=== PATIENT | female | born 1995 | race Caucasian/White ===

== ENCOUNTER 2024-05-17 11:50 | Inpatient (IN) ==
[2024-05-17] MEDS ORDERED: CALCIUM CARBONATE 500 MG CHEWABLE TAB PO PRN (12:23)
[2024-05-17] MEDS ORDERED: OXYTOCIN 30 UNITS/NSS 30 UNITS/500 ML BAG IV PRN (12:23)
[2024-05-17] MEDS ORDERED: LIDOCAINE 1% LOCAL 20 ML VIAL INFIL PRN (12:23)
[2024-05-17] MEDS: LACTATED RINGER'S 1,000 ML IV PRN (12:50)
[2024-05-17 13:13] LABS: Hemoglobin 14.1 g/dl (12.0-16.0); Mean Corpuscular Hemoglobin 31.5 pg (25.0-34.0); Mean Corpuscular Hgb Conc 34.4 g/dL (32.0-36.0); Mean Corpuscular Volume 91.7 fL (80.0-100.0); Platelet Count 153 K/uL (130-400); RDW Coefficient of Variation 13.8 % (11.5-14.5); RDW Standard Deviation 46.5 fL (36.4-46.3); Red Blood Count 4.47 M/uL (4.20-5.40); White Blood Count 11.97 K/ul (4.8-10.8)
--- NOTE | 2024-05-17 13:23 | Anesthesiology Consultation ---
Date of Service May 17, 2024 Assessment & Plan Chart Review Chart Review: Acceptable Risk for Surgery and Patient NOT seen in Pre Admission Testing Consults Requested none ASA ASA3 Proposed Anesthesia Anesthesia Type: Labor Epidural and CSE History Height/Weight Height: 5 ft 2 in Weight: 110.677 kg Allergies Allergy/AdvReac Type Severity Reaction Status Date / Time No Known Allergies Allergy Verified 05/15/24 16:21 Medications Home Medications Medication Instructions Recorded Confirmed Last Taken PNV [id number] 1 tab PO DAILY 10/04/23 05/15/24 03/27/24 [ Gummies] folic acid 1 tab PO DAILY 10/04/23 05/15/24 03/27/24 loratadine [Claritin] 10 mg PO DAILY 10/04/23 05/15/24 03/27/24 sertraline 50 mg tablet 50 mg PO DAILY 10/04/23 05/15/24 03/27/24 aspirin 81 mg chewable tablet 81 mg PO DAILY 01/10/24 05/15/24 03/27/24 Mag Glycinate 400 mg PO DAILY 03/27/24 05/15/24 03/27/24 Active Medications Generic Name Dose Route Start Last Admin Trade Name Freq PRN Reason Stop Dose Admin Lactated Ringer's 1,000 mls @ 125 mls/hr 05/17/24 12:23 05/17/24 12:50 Lr IV 05/19/24 12:22 999 mls/hr .Q8H PRN Administration L&D Protocol Protocol Past Medical History Medical History Seasonal allergies Depression with anxiety Varicella vaccination morbid obesity GERD HTN Exercise / Class Metabolic Activity II 4-5 Yardwork/Stairs/Walk up hill Past Family History Family History Father Brain tumor Denies family history of Ovarian cancer Breast cancer Colorectal cancer Past Surgical History Surgical History S/P adenoidectomy S/P wisdom tooth extraction Past Anesthesia History No Hx of Anesthesia Complications and No Family Hx of Anesthesia Complications History of PONV No Hx of PONV and No Hx of Motion Sickness Social History Smoking Status: Never smoker Do You Dip or Chew Tobacco: No Hx Alcohol Use: No Hx Substance Use: No substance use type: does not use Physical Exam Vital Signs Last Vital Signs Temp 36.6 C 05/17/24 12:09 Pulse 100 H 05/17/24 13:19 Resp 18 05/17/24 12:09 BP 134/90 05/17/24 12:12 Pulse Ox 94 05/17/24 13:19 Testing Laboratory Results 05/17/24 12:42
[2024-05-17] MEDS ORDERED: ePHEDrine sulfate 50 MG/ML AMP IV PRN ×2 (14:12→19:56)
[2024-05-17] MEDS ORDERED: fentANYL 2 MCG/ML BUPIVacaine 0.125%-NSS 100ML BAG EPI PRN (14:12)
[2024-05-17] MEDS ORDERED: BUPIVACAINE 0.25% PF 30 ML VIAL EPI PRN (14:12)
[2024-05-17] MEDS ORDERED: LIDOCAINE 2% MPF LOCAL 5 ML VIAL EPI PRN (14:12)
[2024-05-17] MEDS ORDERED: NALOXONE HCL 0.4 MG/1 ML VIAL/CARP IV PRN ×2 (14:12→19:56)
[2024-05-17] MEDS ORDERED: diphenhydrAMINE 50 MG/ML VIAL IV PRN (14:12)
[2024-05-17] MEDS ORDERED: ROPIVACAINE 0.5% PF 5 MG/ML 20 ML VIAL EPI PRN (14:12)
[2024-05-17] MEDS ORDERED: ONDANSETRON INJ 2 MG/ML 2 ML VIAL IV PRN ×2 (14:12→19:56)
[2024-05-17] MEDS ORDERED: SODIUM CHLORIDE 0.9% PF INJ 10 ML VIAL EPI PRN (14:12)
[2024-05-17] MEDS ORDERED: fentaNYL citrate PF 100 MCG/2 ML VIAL EPI PRN (14:12)
[2024-05-17] MEDS ORDERED: NALOXONE HCL 1 MG in SODIUM CHLORIDE 0.9% 1,000 ML IV PRN ×2 (14:12→19:56)
[2024-05-17] MEDS ORDERED: PROMETHAZINE HCL 6.25 MG in SODIUM CHLORIDE 0.9% 50 ML IV PRN ×2 (14:12→19:56)
[2024-05-17] MEDS: fentaNYL citrate PF 100 MCG/2 ML VIAL ONE (14:16)
[2024-05-17] MEDS: ePHEDrine sulfate 50 MG/ML AMP ONE (14:20)
[2024-05-17] MEDS: LIDOCAINE 2%/EPINEPHRINE 1:200,000 20 ML PF ONE (14:25)
[2024-05-17] MEDS: BUPIVACAINE 0.25% PF 30 ML VIAL ONE (14:26)
[2024-05-17] MEDS: fentANYL 2 MCG/ML BUPIVacaine 0.125%-NSS 100ML BAG ONE (14:26)
[2024-05-17] MEDS: SODIUM CHLORIDE 0.9% PF INJ 10 ML VIAL ONE (14:26)
[2024-05-17] MEDS ORDERED: SODIUM CHLORIDE 0.9% 250 ML IV PRN (14:41)
--- NOTE | 2024-05-17 15:54 | History & Physical Report ---
Date of Service May 17, 2024 Assessment & Plan (1) Supervision of normal first : Plan: Casandra is a 28-year-old G1, P0 currently at 39 weeks 1 day gestational age with confirmed suspected prolonged rupture of membranes. Appears to be in early labor with regular painful contractions noted. Reviewed risks associated with prolonged rupture most significantly risk of infection. 1. Fetus: Category 1 tracing 2. Labor: Appearing to have painful regular contractions. Will augment as indicated. 3. GBS negative 4. Vitals within normal limits (2) SROM (spontaneous rupture of membranes): (3) Prolonged spontaneous rupture of membranes: (4) Large for gestational age fetus affecting management of mother: History of Present Illness Primary Care Provider: Magui Villatoro DO Casandra is a 28-year-old G1, P0 currently at 39 weeks 1 day gestational age presents for evaluation of rupture of membranes and labor. Reports leakage of watery type fluid since around 12 PM yesterday. Reports worsening and more frequent contractions that started this morning but reports that contractions have been fairly regular since yesterday but more mild. complicated by suspected large for gestational age with estimated weight at 94th percentile, AC at greater than 98th percentile on last growth ultrasound. OB Labs: Blood Type A Positive 10/18/23 Antibody Screen NEGATIVE 10/18/23 Hemoglobin 12.5 g/dl (12.0-16.0) 03/14/24 Hematocrit 36.1 % (37.0-47.0) L 03/14/24 Mean Corpuscular Volume 87.8 fL (80.0-100.0) 10/18/23 Platelet Count 274 K/uL (130-400) 10/18/23 Rubella IgG Antibody Immune (Immune) 10/18/23 Rapid Plasma Reagin Nonreactive (Nonreactive) 10/18/23 Hepatitis B Surface Antigen. NON-REACTIVE (NON-REACTIVE) 10/18/23 Hepatitis C Antibody (EIA) NON-REACTIVE (NON-REACTIVE) 10/18/23 HIV (1&2) Ag and Ab Confirmation NON-REACTIVE (NON-REACTIVE) 10/18/23 Glucose 1 Hour 50 gm Load 160 mg/dl (70-130) H 12/20/23 Maternal Serum Alpha Fetoprotein 32.9 ng/mL 12/20/23 OB Optional Labs: Chlamydia trachomatis RNA Not Detected (NotDetected) 10/18/23 Neisseria gonorrhoeae RNA Not Detected (NotDetected) 10/18/23 Alpha Fetoprotein Triple Screen SEE NOTE 12/20/23 Labs Reviewed: cfdna-low risk--mln Horizon 14 negative; needs re-draw for sma--mln Allergies Allergy/AdvReac Type Severity Reaction Status Date / Time No Known Allergies Allergy Verified 05/15/24 16:21 Home Medications Medication Instructions Recorded Confirmed Type PNV [id number] 1 tab PO DAILY 10/04/23 05/15/24 History [ Gummies] folic acid 1 tab PO DAILY 10/04/23 05/15/24 History loratadine [Claritin] 10 mg PO DAILY 10/04/23 05/15/24 History sertraline 50 mg tablet 50 mg PO DAILY 10/04/23 05/15/24 History aspirin 81 mg chewable tablet 81 mg PO DAILY 01/10/24 05/15/24 History Mag Glycinate 400 mg PO DAILY 03/27/24 05/15/24 History Patient History Medical History Seasonal allergies Depression with anxiety Varicella vaccination Surgical History S/P adenoidectomy S/P wisdom tooth extraction Family History Father Brain tumor Denies family history of Ovarian cancer Breast cancer Colorectal cancer Social History Smoking Status: Never smoker Second Hand Exposure: No; Do You Dip or Chew Tobacco: No; Tobacco Cessation Education Requested by Patient: No Hx Alcohol Use: No Hx Substance Use: No Preferred Language: Burmese Furnace Repairer Required: No Beliefs That Will Affect Care: None marital status: marital status details: Brandan Palma (25) [phone] Current Living Situation: Spouse Current Living Situation Comment: - Brandan current occupational status: employed current occupation: [employer]TING [employer] Other Information That Helps Us Care for You: No Feels Safe at Home: Yes Safety Concerns: Feels Safe At This Time Assistive Devices: None Physical Exam Genitourinary: normal external appearance Manual OB Exam: + cervical dilation (2-3), + cervical effacement 80%, + station -2 and + amniotic fluid (Confirmed rupture on exam) clear and ferning present OB Exam Monitor Tracing: + external FHT monitor used, + external uterine monitor used, + category I and + normal FHT variability; no category II, no category III and no early decelerations present Painful contractions noted every 2 to 3 minutes Results & Data Vital Signs (Past 12 Hours) Vital Signs Temp Pulse Resp BP 05/17/24 12:12 94 H 134/90 05/17/24 12:09 36.6 C 94 H 18 134/90 Coding Level of Care Code None Diagnoses Encounter for supervision of normal first in third trimester Z34.03 Trimester: third trimester SROM (spontaneous rupture of membranes) Prolonged spontaneous rupture of membranes O42.90 Excessive growth affecting management of in third trimester, single or unspecified fetus O36.63X0 Fetus number: single or unspecified fetus Trimester: third trimester (1) Supervision of normal first Trimester: third trimester Qualified Code(s): Z34.03 - Encounter for supervision of normal first , third trimester (4) Large for gestational age fetus affecting management of mother Fetus number: single or unspecified fetus Trimester: third trimester Qualified Code(s): O36.63X0 - Maternal care for excessive growth, third trimester, not applicable or unspecified
--- NOTE | 2024-05-17 17:25 | Labor Progress Brief Note ---
Date of Service May 17, 2024 Subjective Reason For Note: Routine Evaluation Assessment & Plan (1) Supervision of normal first : Plan: Casandra is a 28-year-old G1, P0 currently at 39 weeks 1 day gestational age with confirmed suspected prolonged rupture of membranes. Appears to be in early labor with regular painful contractions noted. Reviewed risks associated with prolonged rupture most significantly risk of infection. No signs of infection at present 1. Fetus: Category 1 with episodes of category 2 tracing secondary to irregular variables 2. Labor: Progressing well. 3. GBS negative 4. Vitals within normal limits Trimester: third trimester Qualified Code(s): Z34.03 - Encounter for supervision of normal first , third trimester (2) SROM (spontaneous rupture of membranes): (3) Prolonged spontaneous rupture of membranes: (4) Large for gestational age fetus affecting management of mother: Fetus number: single or unspecified fetus Trimester: third trimester Qualified Code(s): O36.63X0 - Maternal care for excessive growth, third trimester, not applicable or unspecified Admission and Anticipated Discharge Date Admission Date: May 17, 2024 Physical Exam Genitourinary: Manual OB Exam: + cervical dilation (6-6.5), + cervical effacement 80%, + station -2 and + amniotic fluid clear OB Exam Monitor Tracing: + external FHT monitor used, + external uterine monitor used, + category I, + category II, + normal FHT variability, + early decelerations present and + variable decelerations Results & Data Vital Signs (Past 12 Hours) Vital Signs Temp Pulse Resp BP Pulse Ox 05/17/24 17:21 116 H 104/57 L 97 05/17/24 17:16 102 H 107/57 L 96 05/17/24 17:11 114 H 98 05/17/24 17:07 90 108/60 05/17/24 17:06 91 H 98 05/17/24 17:01 109 H 97 05/17/24 16:56 123 H 123/75 97 05/17/24 16:51 100 H 111/67 96 05/17/24 16:46 104 H 97 05/17/24 16:45 104 H 116/67 05/17/24 16:41 93 H 97 05/17/24 16:40 121 H 107/60 05/17/24 16:36 97 05/17/24 16:36 90 05/17/24 16:36 91 H 109/65 05/17/24 16:31 103 H 98 05/17/24 16:30 116 H 109/62 05/17/24 16:26 96 H 107/59 L 98 05/17/24 16:21 91 H 98 05/17/24 16:20 107 H 109/68 05/17/24 16:16 90 108/64 97 05/17/24 16:11 102 H 98 05/17/24 16:10 86 109/68 05/17/24 16:06 98 05/17/24 16:06 95 H 05/17/24 16:06 95 H 112/68 05/17/24 16:02 105 H 123/84 05/17/24 16:01 99 H 98 05/17/24 16:00 16 05/17/24 16:00 16 05/17/24 15:56 86 98 05/17/24 15:55 83 127/81 05/17/24 15:51 91 H 123/74 97 05/17/24 15:46 89 118/72 99 05/17/24 15:41 87 123/75 98 05/17/24 15:36 91 H 126/80 99 05/17/24 15:31 99 05/17/24 15:31 92 H 05/17/24 15:31 88 120/74 05/17/24 15:30 16 05/17/24 15:30 16 05/17/24 15:26 98 05/17/24 15:26 96 H 05/17/24 15:26 90 129/81 05/17/24 15:21 93 H 98 05/17/24 15:20 94 H 118/68 05/17/24 15:16 87 128/79 98 05/17/24 15:11 84 116/66 98 05/17/24 15:06 96 H 114/68 96 05/17/24 15:02 103 H 110/64 05/17/24 15:01 118 H 98 05/17/24 15:00 16 05/17/24 15:00 16 05/17/24 14:57 93 H 117/72 05/17/24 14:56 90 98 05/17/24 14:54 91 H 113/73 05/17/24 14:51 100 H 98 05/17/24 14:46 90 98 06/30/24 14:45 90 103/61 05/17/24 14:41 92 H 98 05/17/24 14:40 88 106/64 05/17/24 14:36 122 H 98 05/17/24 14:34 101 H 112/64 05/17/24 14:32 112 H 102/56 L 05/17/24 14:31 99 H 97 05/17/24 14:30 95 H 113/58 L 05/17/24 14:28 88 109/58 L 05/17/24 14:26 98 05/17/24 14:26 98 H 05/17/24 14:26 97 H 107/55 L 05/17/24 14:24 99 H 16 102/70 05/17/24 14:22 104 H 97/67 L 05/17/24 14:21 100 05/17/24 14:21 107 H 05/17/24 14:21 109 H 96/62 L 05/17/24 14:20 20 05/17/24 14:20 36.6 C 20 05/17/24 14:17 90 97/52 L 05/17/24 14:16 91 H 100 05/17/24 14:14 89 79/42 L 05/17/24 14:12 109 H 89/54 L 05/17/24 14:11 112 H 98 05/17/24 14:10 116 H 97/53 L 05/17/24 14:09 117 H 106/66 05/17/24 14:06 125 H 126/72 98 05/17/24 14:04 115 H 129/77 05/17/24 14:02 99 H 138/86 05/17/24 14:01 110 H 97 05/17/24 14:00 105 H 137/87 05/17/24 13:56 105 H 98 05/17/24 13:53 102 H 167/97 H 05/17/24 13:51 104 H 98 05/17/24 13:47 104 H 149/95 H 05/17/24 13:46 107 H 98 05/17/24 13:43 103 H 152/102 H 05/17/24 13:41 97 H 97 05/17/24 13:36 107 H 98 05/17/24 13:31 114 H 98 05/17/24 13:26 95 H 96 06/30/24 13:21 104 H 97 05/17/24 13:19 100 H 94 05/17/24 13:16 105 H 96 05/17/24 13:11 105 H 97 05/17/24 13:06 101 H 98 05/17/24 12:12 94 H 134/90 05/17/24 12:09 36.6 C 94 H 18 134/90 Coding Level of Care Code None Diagnoses Encounter for supervision of normal first in third trimester Z34.03 Trimester: third trimester SROM (spontaneous rupture of membranes) Prolonged spontaneous rupture of membranes O42.90 Excessive growth affecting management of in third trimester, single or unspecified fetus O36.63X0 Fetus number: single or unspecified fetus Trimester: third trimester
[2024-05-17] MEDS ORDERED: GENTAMICIN CONSULT ACTIVE PRN (18:21)
[2024-05-17] MEDS: GENTAMICIN SULFATE 380 MG in DEXTROSE 5% 100 ML IV STA (18:43)
--- NOTE | 2024-05-17 18:47 | Labor Progress Brief Note ---
Date of Service May 17, 2024 Subjective Presented to bedside for evaluation of and maternal tachycardia. Variability is intermittent with time areas of moderate variability and areas of minimal variability. Discussed presumed diagnosis of chorioamnionitis due to and maternal tachycardia. Discussed initiating treatment with ampicillin and gentamicin. Discussed the presence of minimal variability with tachycardia and discussed concern for intolerance of labor. Discussed that we may nee d to proceed with a section if tracing does not improve. Discussed little more time of monitoring but improvement is not noted will plan to proceed to Assessment & Plan (1) Supervision of normal first : Plan: Casandra is a 28-year-old G1, P0 currently at 39 weeks 1 day gestational age with confirmed suspected prolonged rupture of membranes. Appears to be in early labor with regular painful contractions noted. Reviewed risks associated with prolonged rupture most significantly risk of infection. tachycardia and maternal tachycardia noted. Discussed suspicion of chorioamnionitis and recommend initiating treatment. category 2 tracing with tachycardia and areas of minimal variability. Occasional variables noted. Discussed concern over current tracing and suspected chorioamnionitis. Will start antibiotics and if response not noted discussed plan for section. 1. Fetus: Category 1 with episodes of category 2 tracing secondary to irregular variables 2. Labor: Progressing well. 3. GBS negative 4. Vitals within normal limits Trimester: third trimester Qualified Code(s): Z34.03 - Encounter for supervision of normal first , third trimester (2) SROM (spontaneous rupture of membranes): (3) Prolonged spontaneous rupture of membranes: (4) Large for gestational age fetus affecting management of mother: Fetus number: single or unspecified fetus Trimester: third trimester Qualified Code(s): O36.63X0 - Maternal care for excessive growth, third trimester, not applicable or unspecified (5) Chorioamnionitis: Fetus number: single or unspecified fetus Trimester: third trimester Qualified Code(s): O41.1230 - Chorioamnionitis, third trimester, not applicable or unspecified Admission and Anticipated Discharge Date Admission Date: May 17, 2024 Physical Exam Genitourinary: Manual OB Exam: + cervical dilation (6-6.5), + cervical effacement 80%, + station -2 and + amniotic fluid clear OB Exam Monitor Trac ing: + external FHT monitor used, + external uterine monitor used and + category II Results & Data Vital Signs (Past 12 Hours) Vital Signs Temp Pulse Resp BP Pulse Ox 05/17/24 18:31 117 H 137/76 98 05/17/24 18:26 115 H 96 05/17/24 18:25 125 H 117/71 05/17/24 18:21 112 H 121/79 97 05/17/24 18:16 97 05/17/24 18:16 111 H 05/17/24 18:16 120 H 129/68 05/17/24 18:12 123 H 130/67 05/17/24 18:11 120 H 98 05/17/24 18:07 118 H 138/67 05/17/24 18:06 120 H 97 05/17/24 18:01 110 H 119/68 97 05/17/24 18:00 16 05/17/24 18:00 36.4 C L 16 05/17/24 17:56 106 H 97 05/17/24 17:55 118 H 116/65 05/17/24 17:53 110 H 121/69 05/17/24 17:52 36.4 C L 05/17/24 17:51 126 H 97 05/17/24 17:46 121 H 97 05/17/24 17:45 110 H 115/69 05/17/24 17:41 113 H 97 05/17/24 17:40 104 H 113/74 05/17/24 17:36 98 05/17/24 17:36 110 H 05/17/24 17:36 114 H 127/77 05/17/24 17:31 97 05/17/24 17:31 100 H 05/17/24 17:31 93 H 109/62 05/17/24 17:30 16 05/17/24 17:30 16 05/17/24 17:27 92 H 106/61 05/17/24 17:26 89 96 05/17/24 17:21 116 H 104/57 L 97 05/17/24 17:16 102 H 107/57 L 96 05/17/24 17:11 114 H 98 05/17/24 17:07 90 108/60 05/17/24 17:06 91 H 98 05/17/24 17:01 109 H 97 05/17/24 17:00 16 05/17/24 17:00 37.0 C 16 05/17/24 16:56 123 H 123/75 97 05/17/24 16:51 100 H 111/67 96 05/17/24 16:46 104 H 97 05/17/24 16:45 104 H 116/67 05/17/24 16:41 93 H 97 05/17/24 16:40 121 H 107/60 05/17/24 16:36 97 05/17/24 16:36 90 05/17/24 16:36 91 H 109/65 05/17/24 16:31 103 H 98 05/17/24 16:30 116 H 109/62 05/17/24 16:26 96 H 107/59 L 98 05/17/24 16:21 91 H 98 05/17/24 16:20 107 H 109/68 05/17/24 16:16 90 108/64 97 05/17/24 16:11 102 H 98 05/17/24 16:10 86 109/68 05/17/24 16:06 98 05/17/24 16:06 95 H 05/17/24 16:06 95 H 112/68 05/17/24 16:02 105 H 123/84 05/17/24 16:01 99 H 98 05/17/24 16:00 16 05/17/24 16:00 16 05/17/24 15:56 86 98 05/17/24 15:55 83 127/81 05/17/24 15:51 91 H 123/74 97 05/17/24 15:46 89 118/72 99 05/17/24 15:41 87 123/75 98 05/17/24 15:36 91 H 126/80 99 05/17/24 15:31 99 05/17/24 15:31 92 H 05/17/24 15:31 88 120/74 05/17/24 15:30 16 05/17/24 15:30 16 05/17/24 15:26 98 05/17/24 15:26 96 H 05/17/24 15:26 90 129/81 05/17/24 15:21 93 H 98 05/17/24 15:20 94 H 118/68 05/17/24 15:16 87 128/79 98 05/17/24 15:11 84 116/66 98 05/17/24 15:06 96 H 114/68 96 05/17/24 15:02 103 H 110/64 06/30/24 15:01 118 H 98 05/17/24 15:00 16 05/17/24 15:00 16 05/17/24 14:57 93 H 117/72 05/17/24 14:56 90 98 05/17/24 14:54 91 H 113/73 05/17/24 14:51 100 H 98 05/17/24 14:46 90 98 05/17/24 14:45 90 103/61 05/17/24 14:41 92 H 98 05/17/24 14:40 88 106/64 05/17/24 14:36 122 H 98 05/17/24 14:34 101 H 112/64 05/17/24 14:32 112 H 102/56 L 05/17/24 14:31 99 H 97 05/17/24 14:30 95 H 113/58 L 05/17/24 14:28 88 109/58 L 05/17/24 14:26 98 05/17/24 14:26 98 H 05/17/24 14:26 97 H 107/55 L 05/17/24 14:24 99 H 16 102/70 05/17/24 14:22 104 H 97/67 L 05/17/24 14:21 100 05/17/24 14:21 107 H 05/17/24 14:21 109 H 96/62 L 05/17/24 14:20 20 05/17/24 14:20 36.6 C 20 05/17/24 14:17 90 97/52 L 05/17/24 14:16 91 H 100 05/17/24 14:14 89 79/42 L 05/17/24 14:12 109 H 89/54 L 05/17/24 14:11 112 H 98 05/17/24 14:10 116 H 97/53 L 05/17/24 14:09 117 H 106/66 05/17/24 14:06 125 H 126/72 98 05/17/24 14:04 115 H 129/77 05/17/24 14:02 99 H 138/86 05/17/24 14:01 110 H 97 05/17/24 14:00 105 H 137/87 05/17/24 13:56 105 H 98 05/17/24 13:53 102 H 167/97 H 05/17/24 13:51 104 H 98 05/17/24 13:47 104 H 149/95 H 05/17/24 13:46 107 H 98 05/17/24 13:43 103 H 152/102 H 05/17/24 13:41 97 H 97 05/17/24 13:36 107 H 98 05/17/24 13:31 114 H 98 05/17/24 13:26 95 H 96 05/17/24 13:21 104 H 97 05/17/24 13:19 100 H 94 05/17/24 13:16 105 H 96 05/17/24 13:11 105 H 97 05/17/24 13:06 101 H 98 05/17/24 12:12 94 H 134/90 05/17/24 12:09 36.6 C 94 H 18 134/90 Coding Level of Care Code None Diagnoses Encounter for supervision of normal first in third trimester Z34.03 Trimester: third trimester SROM (spontaneous rupture of membranes) Prolonged spontaneous rupture of membranes O42.90 Excessive growth affecting management of in third trimester, single or unspecified fetus O36.63X0 Fetus number: single or unspecified fetus Trimester: third trimester Chorioamnionitis in third trimester, single or unspecified fetus O41.1230 Fetus number: single or unspecified fetus Trimester: third trimester
--- NOTE | 2024-05-17 19:06 | Labor Progress Brief Note ---
Date of Service May 17, 2024 Subjective Presented bedside again to discuss persistent tachycardia with minimal variability. Recommended proceeding with section due to the persistence of the minimal variability. I reviewed the section procedure including risks and benefits. Discussed increased risk related to the procedure due to the prolonged rupture with suspected chorioamnionitis. Discussed increased risk for heavy bleeding, infection and wound breakdown. Discussed antibiotic prophylaxis plan and answered questions Assessment & Plan Admission and Anticipated Discharge Date Admission Date: May 17, 2024 Results & Data Vital Signs (Past 12 Hours) Vital Signs Temp Pulse Resp BP Pulse Ox 05/17/24 19:01 121 H 97 05/17/24 19:00 144 H 135/75 05/17/24 18:57 133 H 121/76 05/17/24 18:56 133 H 97 05/17/24 18:55 129 H 94 05/17/24 18:52 103 H 129/78 05/17/24 18:51 104 H 96 05/17/24 18:46 122 H 113/68 98 05/17/24 18:41 97 05/17/24 18:41 115 H 05/17/24 18:41 113 H 124/76 05/17/24 18:36 115 H 123/77 97 05/17/24 18:31 117 H 137/76 98 05/17/24 18:30 16 05/17/24 18:30 36.4 C L 16 05/17/24 18:26 115 H 96 05/17/24 18:25 125 H 117/71 05/17/24 18:21 112 H 121/79 97 05/17/24 18:16 97 05/17/24 18:16 111 H 05/17/24 18:16 120 H 129/68 05/17/24 18:12 123 H 130/67 05/17/24 18:11 120 H 98 05/17/24 18:07 118 H 138/67 05/17/24 18:06 120 H 97 05/17/24 18:01 110 H 119/68 97 05/17/24 18:00 16 05/17/24 18:00 36.4 C L 16 05/17/24 17:56 106 H 97 05/17/24 17:55 118 H 116/65 05/17/24 17:53 110 H 121/69 05/17/24 17:52 36.4 C L 05/17/24 17:51 126 H 97 05/17/24 17:46 121 H 97 05/17/24 17:45 110 H 115/69 05/17/24 17:41 113 H 97 05/17/24 17:40 104 H 113/74 05/17/24 17:36 98 05/17/24 17:36 110 H 05/17/24 17:36 114 H 127/77 05/17/24 17:31 97 05/17/24 17:31 100 H 05/17/24 17:31 93 H 109/62 05/17/24 17:30 16 05/17/24 17:30 16 05/17/24 17:27 92 H 106/61 05/17/24 17:26 89 96 05/17/24 17:21 116 H 104/57 L 97 05/17/24 17:16 102 H 107/57 L 96 05/17/24 17:11 114 H 98 05/17/24 17:07 90 108/60 05/17/24 17:06 91 H 98 05/17/24 17:01 109 H 97 05/17/24 17:00 16 05/17/24 17:00 37.0 C 16 05/17/24 16:56 123 H 123/75 97 05/17/24 16:51 100 H 111/67 96 05/17/24 16:46 104 H 97 05/17/24 16:45 104 H 116/67 05/17/24 16:41 93 H 97 05/17/24 16:40 121 H 107/60 05/17/24 16:36 97 05/17/24 16:36 90 05/17/24 16:36 91 H 109/65 05/17/24 16:31 103 H 98 05/17/24 16:30 116 H 109/62 05/17/24 16:26 96 H 107/59 L 98 05/17/24 16:21 91 H 98 05/17/24 16:20 107 H 109/68 05/17/24 16:16 90 108/64 97 05/17/24 16:11 102 H 98 05/17/24 16:10 86 109/68 05/17/24 16:06 98 05/17/24 16:06 95 H 05/17/24 16:06 95 H 112/68 05/17/24 16:02 105 H 123/84 05/17/24 16:01 99 H 98 05/17/24 16:00 16 05/17/24 16:00 16 05/17/24 15:56 86 98 05/17/24 15:55 83 127/81 05/17/24 15:51 91 H 123/74 97 05/17/24 15:46 89 118/72 99 05/17/24 15:41 87 123/75 98 05/17/24 15:36 91 H 126/80 99 05/17/24 15:31 99 05/17/24 15:31 92 H 05/17/24 15:31 88 120/74 05/17/24 15:30 16 05/17/24 15:30 16 05/17/24 15:26 98 05/17/24 15:26 96 H 05/17/24 15:26 90 129/81 05/17/24 15:21 93 H 98 05/17/24 15:20 94 H 118/68 05/17/24 15:16 87 128/79 98 05/17/24 15:11 84 116/66 98 05/17/24 15:06 96 H 114/68 96 05/17/24 15:02 103 H 110/64 05/17/24 15:01 118 H 98 05/17/24 15:00 16 05/17/24 15:00 16 05/17/24 14:57 93 H 117/72 05/17/24 14:56 90 98 05/17/24 14:54 91 H 113/73 05/17/24 14:51 100 H 98 05/17/24 14:46 90 98 05/17/24 14:45 90 103/61 05/17/24 14:41 92 H 98 05/17/24 14:40 88 106/64 05/17/24 14:36 122 H 98 05/17/24 14:34 101 H 112/64 05/17/24 14:32 112 H 102/56 L 05/17/24 14:31 99 H 97 05/17/24 14:30 95 H 113/58 L 05/17/24 14:28 88 109/58 L 05/17/24 14:26 98 05/17/24 14:26 98 H 05/17/24 14:26 97 H 107/55 L 06/30/24 14:24 99 H 16 102/70 05/17/24 14:22 104 H 97/67 L 05/17/24 14:21 100 05/17/24 14:21 107 H 05/17/24 14:21 109 H 96/62 L 05/17/24 14:20 20 05/17/24 14:20 36.6 C 20 05/17/24 14:17 90 97/52 L 05/17/24 14:16 91 H 100 05/17/24 14:14 89 79/42 L 05/17/24 14:12 109 H 89/54 L 05/17/24 14:11 112 H 98 05/17/24 14:10 116 H 97/53 L 05/17/24 14:09 117 H 106/66 05/17/24 14:06 125 H 126/72 98 05/17/24 14:04 115 H 129/77 05/17/24 14:02 99 H 138/86 05/17/24 14:01 110 H 97 05/17/24 14:00 105 H 137/87 05/17/24 13:56 105 H 98 05/17/24 13:53 102 H 167/97 H 05/17/24 13:51 104 H 98 05/17/24 13:47 104 H 149/95 H 05/17/24 13:46 107 H 98 05/17/24 13:43 103 H 152/102 H 05/17/24 13:41 97 H 97 05/17/24 13:36 107 H 98 05/17/24 13:31 114 H 98 05/17/24 13:26 95 H 96 05/17/24 13:21 104 H 97 05/17/24 13:19 100 H 94 05/17/24 13:16 105 H 96 05/17/24 13:11 105 H 97 05/17/24 13:06 101 H 98 05/17/24 12:12 94 H 134/90 05/17/24 12:09 36.6 C 94 H 18 134/90 Coding Level of Care Code None
[2024-05-17] MEDS ORDERED: ONDANSETRON INJ 2 MG/ML 2 ML VIAL ONE (19:15)
[2024-05-17] MEDS ORDERED: OXYTOCIN 10 UNITS/ML VIAL ONE (19:15)
[2024-05-17] MEDS ORDERED: DEXAMETHASONE SOD INJ 4 MG/ML VIAL ONE (19:15)
[2024-05-17] MEDS ORDERED: KETOROLAC 30 MG/ML VIAL ONE (19:15)
[2024-05-17] MEDS ORDERED: MoRPHine SULFATE PF 1 MG/ML 10 ML AMP/VIAL ONE (19:15)
[2024-05-17] MEDS ORDERED: PHENYLEPHRINE 100MCG/ML 10ML SYR IV ONE (19:15)
[2024-05-17] MEDS: ceFAZolin 3000MG 3,000 MG/72.5 ML BAG IV SCH (19:30)
[2024-05-17] MEDS: AZITHROMYCIN 500 MG in DEXTROSE 5% 250 ML IV SCH (19:40)
[2024-05-17] MEDS ORDERED: HYDROmorphone INJ 0.5 MG/0.5 ML SYR IV PRN (19:56)
[2024-05-17] MEDS ORDERED: NALBUPHINE HCL 5 MG in SYRINGE 0 ML IV PRN (19:56)
[2024-05-17] MEDS ORDERED: MoRPHine SULFATE PF 1 MG/ML 10 ML AMP/VIAL EPI ONE (19:56)
[2024-05-17] MEDS ORDERED: LACTATED RINGER'S 500 ML IV PRN (19:56)
[2024-05-17] MEDS ORDERED: NALOXONE HCL 0.08 MG in SYRINGE 1.8 ML IV PRN (19:56)
[2024-05-17] MEDS ORDERED: DC INTRASPINAL MORPHINE SCH (20:00)
[2024-05-17] MEDS ORDERED: NO NARCOTICS OR SEDATIVES SCH (20:00)
[2024-05-17] MEDS ORDERED: SODIUM CHLORIDE 0.9% 1,000 ML IV SCH (20:00)
[2024-05-17] MEDS ORDERED: HYDROCORTISONE ACETATE 25 MG SUPP PR PRN (20:32)
[2024-05-17] MEDS ORDERED: diphenhydrAMINE Capsule 25 MG CAP PO PRN (20:32)
[2024-05-17] MEDS ORDERED: MAGNESIUM HYDROXIDE SUSP 30 ML UDC PO PRN (20:32)
[2024-05-17] MEDS ORDERED: SENNA 8.6 MG TAB PO PRN (20:32)
[2024-05-17] MEDS ORDERED: BENZOCAINE 20% SPRY 85 APPLN/85 GM CAN EXT PRN (20:32)
--- NOTE | 2024-05-17 20:42 | Anesthesiology Progress Note ---
Date of Service May 17, 2024 Anesthesia Post Procedure Vital Signs Vital Signs: Temp Pulse Resp BP Pulse Ox 05/17/24 20:37 100 H 112/65 05/17/24 20:36 96 H 97 05/17/24 19:26 122 H 109/59 L 96 05/17/24 19:21 142 H 96 05/17/24 19:20 160 H 109/60 05/17/24 19:16 139 H 110/55 L 97 05/17/24 19:12 120 H 126/73 05/17/24 19:11 135 H 97 05/17/24 19:06 115 H 96 05/17/24 19:05 37.1 C 139 H 18 98/52 L 05/17/24 19:01 121 H 97 05/17/24 19:00 144 H 16 135/75 05/17/24 18:57 133 H 121/76 05/17/24 18:56 133 H 97 05/17/24 18:55 129 H 94 05/17/24 18:52 103 H 129/78 05/17/24 18:51 104 H 96 05/17/24 18:46 122 H 113/68 98 05/17/24 18:41 97 05/17/24 18:41 115 H 05/17/24 18:41 113 H 124/76 05/17/24 18:36 115 H 123/77 97 05/17/24 18:31 117 H 137/76 98 05/17/24 18:30 16 05/17/24 18:30 36.4 C L 16 05/17/24 18:26 115 H 96 05/17/24 18:25 125 H 117/71 05/17/24 18:21 112 H 121/79 97 05/17/24 18:16 97 05/17/24 18:16 111 H 05/17/24 18:16 120 H 129/68 05/17/24 18:12 123 H 130/67 05/17/24 18:11 120 H 98 05/17/24 18:07 118 H 138/67 05/17/24 18:06 120 H 97 05/17/24 18:01 110 H 119/68 97 05/17/24 18:00 16 05/17/24 18:00 36.4 C L 16 05/17/24 17:56 106 H 97 05/17/24 17:55 118 H 116/65 05/17/24 17:53 110 H 121/69 05/17/24 17:52 36.4 C L 05/17/24 17:51 126 H 97 05/17/24 17:46 121 H 97 05/17/24 17:45 110 H 115/69 05/17/24 17:41 113 H 97 05/17/24 17:40 104 H 113/74 05/17/24 17:36 98 05/17/24 17:36 110 H 05/17/24 17:36 114 H 127/77 05/17/24 17:31 97 05/17/24 17:31 100 H 05/17/24 17:31 93 H 109/62 05/17/24 17:30 16 05/17/24 17:30 16 05/17/24 17:27 92 H 106/61 05/17/24 17:26 89 96 05/17/24 17:21 116 H 104/57 L 97 05/17/24 17:16 102 H 107/57 L 96 05/17/24 17:11 114 H 98 05/17/24 17:07 90 108/60 05/17/24 17:06 91 H 98 05/17/24 17:01 109 H 97 05/17/24 17:00 16 05/17/24 17:00 37.0 C 16 05/17/24 16:56 123 H 123/75 97 05/17/24 16:51 100 H 111/67 96 05/17/24 16:46 104 H 97 05/17/24 16:45 104 H 116/67 05/17/24 16:41 93 H 97 05/17/24 16:40 121 H 107/60 05/17/24 16:36 97 05/17/24 16:36 90 05/17/24 16:36 91 H 109/65 05/17/24 16:31 103 H 98 05/17/24 16:30 116 H 109/62 05/17/24 16:26 96 H 107/59 L 98 05/17/24 16:21 91 H 98 05/17/24 16:20 107 H 109/68 05/17/24 16:16 90 108/64 97 05/17/24 16:11 102 H 98 05/17/24 16:10 86 109/68 06/30/24 16:06 98 05/17/24 16:06 95 H 05/17/24 16:06 95 H 112/68 05/17/24 16:02 105 H 123/84 05/17/24 16:01 99 H 98 05/17/24 16:00 16 05/17/24 16:00 16 05/17/24 15:56 86 98 05/17/24 15:55 83 127/81 05/17/24 15:51 91 H 123/74 97 05/17/24 15:46 89 118/72 99 05/17/24 15:41 87 123/75 98 05/17/24 15:36 91 H 126/80 99 05/17/24 15:31 99 05/17/24 15:31 92 H 05/17/24 15:31 88 120/74 05/17/24 15:30 16 05/17/24 15:30 16 05/17/24 15:26 98 05/17/24 15:26 96 H 05/17/24 15:26 90 129/81 05/17/24 15:21 93 H 98 05/17/24 15:20 94 H 118/68 05/17/24 15:16 87 128/79 98 05/17/24 15:11 84 116/66 98 05/17/24 15:06 96 H 114/68 96 05/17/24 15:02 103 H 110/64 05/17/24 15:01 118 H 98 05/17/24 15:00 16 05/17/24 15:00 16 05/17/24 14:57 93 H 117/72 05/17/24 14:56 90 98 05/17/24 14:54 91 H 113/73 05/17/24 14:51 100 H 98 05/17/24 14:46 90 98 05/17/24 14:45 90 103/61 05/17/24 14:41 92 H 98 05/17/24 14:40 88 106/64 05/17/24 14:36 122 H 98 05/17/24 14:34 101 H 112/64 05/17/24 14:32 112 H 102/56 L 05/17/24 14:31 99 H 97 05/17/24 14:30 95 H 113/58 L 05/17/24 14:28 88 109/58 L 05/17/24 14:26 98 05/17/24 14:26 98 H 05/17/24 14:26 97 H 107/55 L 05/17/24 14:24 99 H 16 102/70 05/17/24 14:22 104 H 97/67 L 05/17/24 14:21 100 05/17/24 14:21 107 H 05/17/24 14:21 109 H 96/62 L 05/17/24 14:20 20 05/17/24 14:20 36.6 C 20 05/17/24 14:17 90 97/52 L 05/17/24 14:16 91 H 100 05/17/24 14:14 89 79/42 L 05/17/24 14:12 109 H 89/54 L 05/17/24 14:11 112 H 98 05/17/24 14:10 116 H 97/53 L 05/17/24 14:09 117 H 106/66 05/17/24 14:06 125 H 126/72 98 05/17/24 14:04 115 H 129/77 05/17/24 14:02 99 H 138/86 05/17/24 14:01 110 H 97 05/17/24 14:00 105 H 137/87 05/17/24 13:56 105 H 98 05/17/24 13:53 102 H 167/97 H 05/17/24 13:51 104 H 98 05/17/24 13:47 104 H 149/95 H 05/17/24 13:46 107 H 98 05/17/24 13:43 103 H 152/102 H 05/17/24 13:41 97 H 97 05/17/24 13:36 107 H 98 05/17/24 13:31 114 H 98 05/17/24 13:26 95 H 96 05/17/24 13:21 104 H 97 05/17/24 13:19 100 H 94 05/17/24 13:16 105 H 96 05/17/24 13:11 105 H 97 05/17/24 13:06 101 H 98 05/17/24 12:12 94 H 134/90 05/17/24 12:09 36.6 C 94 H 18 134/90 Transfer of Care Handoff Completed per policy Notes Mental Status: alert / awake / arousable and participated in evaluation Patient Amnestic to Procedure: No Nausea / Vomiting: adequately controlled Pain: adequately controlled Airway Patency, RR, SpO2: stable & adequate BP & HR: stable & adequate Hydration State: stable & adequate Neuraxial Anesthesia: was administered and sensory block is resolving Anesthetic Complications: no major complications apparent and Pt Satisfied with anesthetic care
--- NOTE | 2024-05-17 20:42 | Anesthesia Procedure Note ---
Date of Service May 17, 2024 Anesthesia Post Epidural Note Vital Signs Vital Signs: Temp Pulse Resp BP Pulse Ox 37.1 C 100 H 18 112/65 97 05/17/24 19:05 05/17/24 20:37 05/17/24 19:05 05/17/24 20:37 05/17/24 20:36 Notes Mental Status: alert / awake / arousable and participated in evaluation Patient Amnestic to Procedure: No Nausea / Vomiting: adequately controlled Pain: adequately controlled Airway Patency, RR, SpO2: stable & adequate BP & HR: stable & adequate Hydration State: stable & adequate Neuraxial Anesthesia: was administered and sensory block is resolving Anesthetic Complications: no major complications apparent and Pt Satisfied with anesthetic care Epidural: Removed without complications and With tip intact
[2024-05-17] MEDS ORDERED: LACTATED RINGER'S 1,000 ML IV SCH (20:45)
--- NOTE | 2024-05-17 21:03 | Operative Report ---
PG Post Operative Report Pre & Post Diagnosis Operation Date: 05/17/24 19:15 Pre-Op Diagnosis: Primary for Non-reassuring heart rate Post-Op Diagnosis: same I identified the patient and participated in the time-out.: Yes Procedure Operation Date: 05/17/24 19:15 Actual Procedures p Section in LD for [facility] at 1952(Bilateral) - Holger Guerrero MD Surgeon Holger Guerrero MD Maintenance Worker Swimming Pool Nursing staff Estimated Blood Loss 829 Findings Consistent with Post-Op Diagnosis Thick meconium noted at time of delivery. Specimens Placenta Description of Procedure Patient was taken the operating room after consent was ensured. Upon presentation she was properly identified. Anesthesia obtained patient prepped and draped in normal sterile fashion. Preprocedural timeout was performed. A Pfannenstiel incision was made with a knife. This was carried down to underlying fascia with the Bovie. The fascia was nicked at the midline with a knife and extended laterally with pickups and Pollard scissors. Superior aspect of the fascia was grasped with Alisha's x 2 elevated off the underlying rectus muscles using blunt dissection. Abdominal cavity was entered bluntly and placed on stretch to provide adequate room for delivery. A low transverse uterine incision was made with a knife. Head of the was delivered through the hysterotomy followed by body and shoulders. to have good tone at time of delivery and cord was double clamped and cut. Baby taken to the waiting nursery staff. Attention was turned to delivery of the placenta which delivered intact with three-vessel cord gentle cord traction. Uterus was exteriorized and several passes were made to remove any remaining membranes with a dry lap. Hysterotomy was reapproximated with 0 Vicryl continuous running lock stitch with a second imbricating layer performed and excellent hemostasis noted. Posterior cul-de-sac cleaned of clots and debris's. Uterus returned maternal abdomen and right left paracolic gutters cleaned of clots and debris's. Hysterotomy remained hemostatic. Subcutaneous fascia and muscle layers inspected noted be hemostatic. Fascia was reapproximated 0 Vicryl continuous running stitch. Subcutaneous layer reapproximated 2 layers using 2-0 plain. Skin reapproximated with 3-0 Vicryl and continuous subcuticular stitch. Dermabond placed on top. Both mother and in stable condition at the completion of the case. Needle sponge and instrument counts correct at the completion of the case I attest to the content of the Intraoperative Record and any orders documented therein. Any exceptions are noted below. OB Procedure charges OB Charges [id number]
[2024-05-17] MEDS: BUPIVACAINE 0.25% PF 30 ML VIAL EPI STA (21:11)
[2024-05-17] MEDS: SODIUM CHLORIDE 0.9% PF INJ 10 ML VIAL EPI STA (21:12)
[2024-05-17] MEDS: LIDOCAINE 2%/EPINEPHRINE 1:200,000 20 ML PF EPI STA (21:12)
[2024-05-17] MEDS: fentaNYL citrate PF 100 MCG/2 ML VIAL EPI STA (21:12)
[2024-05-17] MEDS: AMPICILLIN 2,000 MG in SODIUM CHLOR 0.9% MINI-B 100 ML IV SCH (21:13)
[2024-05-17] MEDS: DIPHTHER/TETAN/PERTUS Vaccine (Tdap, Adol/Adult) 0.5mL IM ONE (21:15)
[2024-05-17] MEDS: DOCUSATE SODIUM 100 MG CAP PO SCH (22:11)
[2024-05-17] MEDS: SIMETHICONE 80 MG CHEW PO SCH (22:11)
[2024-05-17] MEDS: OXYTOCIN 20 UNITS/LR 1,002 ML IV SCH (23:10)
[2024-05-17] MEDS: diphenhydrAMINE 50 MG/ML VIAL IV PRN (23:12)
[2024-05-18] MEDS ORDERED: AMPICILLIN SOD 1 GM VIAL IV SCH
[2024-05-18] MEDS: NALBUPHINE HCL 5 MG in SYRINGE 0 ML IV PRN (00:10)
[2024-05-18] MEDS: ceFAZolin 2000MG 2,000 MG/15 ML SYR IV SCH (03:37)
[2024-05-18] MEDS: KETOROLAC 30 MG/ML VIAL IV PRN (03:38)
[2024-05-18] MEDS ORDERED: CITRIC ACID/SODIUM CITRATE 15 ML UDC PO SCH (06:00)
[2024-05-18 06:38] LABS: Basophils # (auto) 0.03 K/uL (0.00-0.20); Basophils % (auto) 0.2 %; Hematocrit (blood only) 34.5 % (37.0-47.0); Hemoglobin 11.7 g/dl (12.0-16.0); Immature Granulocytes # (auto) 0.12 K/uL (0.01-0.20); Immature Granulocytes % (auto) 0.9 %; Lymphocytes # (auto) 1.13 K/uL (1.20-3.40); Lymphocytes % (auto) 8.7 %; Mean Corpuscular Hgb Conc 33.9 g/dL (32.0-36.0); Mean Corpuscular Volume 94.3 fL (80.0-100.0); Mean Platelet Volume 13.4 fL (9.4-12.4); Monocytes # (auto) 0.66 K/uL (0.11-0.59); Monocytes % (auto) 5.1 %; Neutrophils # (auto) 11.05 K/uL (1.40-6.50); Neutrophils % (auto) 85.1 %; Platelet Count 123 K/uL (130-400); RDW Coefficient of Variation 13.5 % (11.5-14.5); RDW Standard Deviation 46.5 fL (36.4-46.3); Red Blood Count 3.66 M/uL (4.20-5.40); White Blood Count 12.99 K/ul (4.8-10.8)
--- NOTE | 2024-05-18 07:21 | Obstetrical Progress Note ---
Date of Service May 18, 2024 Assessment & Plan (1) Encounter for care and examination after delivery: Day 1 status post primary . Doing well and will continue with routine care. Subjective Ambulation: ambulating normally Voiding: no voiding problems Passing Gas:: Yes Diet Tolerance:: regular diet Lochia:: Moderate Feeding Type:: breast feeding Physical Exam Constitutional WD/WN, vitals as above Respiratory normal respiratory effort; no respiratory distress and no labored breathing Cardiovascular Extremities: no calf tenderness Gastrointestinal (Abdomen) Inspection/Auscultation: abdomen normal to inspection; abdomen not distended Percussion/Palpation: abdomen soft; abdomen nontender, no guarding and abdomen not rigid Incision clean, dry and intact Genitourinary OB Exam Abdomen: + fundal height Fundus: + firm and + relation to umbilicus (Below); not tender or not boggy Results & Data Vital Signs (Past 12 Hours) Vital Signs Temp Pulse Pulse Resp BP BP Pulse Ox 05/18/24 06:30 20 94 05/18/24 05:30 20 96 05/18/24 04:30 20 92 05/18/24 03:30 36.8 C 88 20 108/68 94 05/18/24 03:30 20 94 05/18/24 02:30 20 97 05/18/24 01:30 20 94 05/18/24 00:30 20 97 05/17/24 23:30 20 97 05/17/24 23:30 36.6 C 82 20 122/82 97 05/17/24 23:16 84 93 05/17/24 23:11 81 94 05/17/24 23:10 86 94 05/17/24 23:07 86 113/62 05/17/24 23:06 83 95 05/17/24 23:04 82 94 05/17/24 23:01 82 95 05/17/24 22:56 84 95 05/17/24 22:51 83 96 05/17/24 22:46 86 96 05/17/24 22:41 96 H 96 05/17/24 22:37 84 122/75 05/17/24 22:36 37 C 84 18 122/75 05/17/24 22:36 103 H 95 05/17/24 22:35 84 93 05/17/24 22:31 87 96 05/17/24 22:26 97 H 96 05/17/24 22:22 97 H 93 05/17/24 22:21 97 H 95 05/17/24 22:16 85 95 05/17/24 22:11 84 96 05/17/24 22:06 18 05/17/24 22:06 81 96 05/17/24 22:01 84 96 05/17/24 21:56 84 96 05/17/24 21:51 86 95 05/17/24 21:46 82 94 05/17/24 21:41 90 95 05/17/24 21:40 96 H 94 05/17/24 21:37 94 H 115/70 05/17/24 21:36 37.3 C 97 H 16 93 05/17/24 21:36 85 16 95 05/17/24 21:36 93 H 97 05/17/24 21:31 87 96 05/17/24 21:26 84 18 96 05/17/24 21:26 85 96 05/17/24 21:23 96 H 108/52 L 05/17/24 21:21 92 H 96 05/17/24 21:16 37.3 C 82 16 94 05/17/24 21:16 97 H 95 05/17/24 21:11 95 H 96 05/17/24 21:08 108 H 114/69 05/17/24 21:06 94 H 18 115/70 05/17/24 21:06 91 H 97 05/17/24 21:01 85 97 05/17/24 20:57 93 H 101/58 L 05/17/24 20:56 94 H 16 115/70 05/17/24 20:56 101 H 96 05/17/24 20:51 91 H 98 05/17/24 20:47 95 H 108/54 L 05/17/24 20:46 18 05/17/24 20:46 97 H 98 05/17/24 20:41 97 H 97 05/17/24 20:37 100 H 112/65 05/17/24 20:36 37 C 18 05/17/24 20:36 96 H 97 05/17/24 19:26 122 H 109/59 L 96 05/17/24 19:21 142 H 96 O2 Del Method 05/18/24 06:30 05/18/24 05:30 05/18/24 04:30 05/18/24 03:30 Room Air 05/18/24 03:30 05/18/24 02:30 05/18/24 01:30 05/18/24 00:30 05/17/24 23:30 05/17/24 23:30 Room Air 05/17/24 23:16 05/17/24 23:11 05/17/24 23:10 05/17/24 23:07 05/17/24 23:06 05/17/24 23:04 05/17/24 23:01 05/17/24 22:56 05/17/24 22:51 05/17/24 22:46 05/17/24 22:41 05/17/24 22:37 05/17/24 22:36 05/17/24 22:36 05/17/24 22:35 05/17/24 22:31 05/17/24 22:26 05/17/24 22:22 05/17/24 22:21 05/17/24 22:16 05/17/24 22:11 05/17/24 22:06 05/17/24 22:06 05/17/24 22:01 05/17/24 21:56 05/17/24 21:51 05/17/24 21:46 05/17/24 21:41 05/17/24 21:40 05/17/24 21:37 05/17/24 21:36 05/17/24 21:36 05/17/24 21:36 05/17/24 21:31 05/17/24 21:26 05/17/24 21:26 05/17/24 21:23 05/17/24 21:21 05/17/24 21:16 05/17/24 21:16 05/17/24 21:11 05/17/24 21:08 05/17/24 21:06 05/17/24 21:06 05/17/24 21:01 05/17/24 20:57 05/17/24 20:56 05/17/24 20:56 05/17/24 20:51 05/17/24 20:47 05/17/24 20:46 05/17/24 20:46 05/17/24 20:41 05/17/24 20:37 05/17/24 20:36 05/17/24 20:36 05/17/24 19:26 05/17/24 19:21
[2024-05-18] MEDS: PRENATAL VITAMIN 1 TAB PO SCH (09:52)
[2024-05-18] MEDS: FERROUS SULFATE 325 MG TAB PO SCH (09:53)
[2024-05-18] MEDS ORDERED: oxyCODONE/ACETAMINOPHEN 5mg/325mg TAB PO PRN (13:57)
[2024-05-18] MEDS ORDERED: diphenhydrAMINE 50 MG/ML VIAL IV PRN (13:57)
[2024-05-18] MEDS ORDERED: KETOROLAC 30 MG/ML VIAL IV PRN (13:57)
[2024-05-18] MEDS ORDERED: PROMETHAZINE HCL 25 MG in SODIUM CHLORIDE 0.9% 50 ML IV PRN (13:57)
[2024-05-18] MEDS ORDERED: ONDANSETRON INJ 2 MG/ML 2 ML VIAL IV PRN (13:57)
[2024-05-18] MEDS: SERTRALINE HCL 50 MG TABLET PO SCH ×2 (14:56→20:34)
[2024-05-18] MEDS ORDERED: Nursing to Pharmacy Communication SCH (15:00)
[2024-05-18] MEDS: IBUPROFEN 600 MG TAB PO PRN (16:31)
[2024-05-18] MEDS: bisacodyL 5 MG TABEC PO SCH (20:34)
[2024-05-18] MEDS: ACETAMINOPHEN 500 MG TAB PO PRN (23:42)
[2024-05-19 06:30] LABS: Hematocrit (blood only) 32.8 % (37.0-47.0); Hemoglobin 10.9 g/dl (12.0-16.0)
--- NOTE | 2024-05-19 07:22 | Obstetrical Progress Note ---
Date of Service May 19, 2024 Assessment & Plan (1) Encounter for care and examination after delivery: patient notes she's feeling great, would want to go home except baby is still requiring care, so she would prefer to remain a patient while her baby is at least for today. Subjective Ambulation: ambulating normally Voiding: no voiding problems Passing Gas:: Yes Diet Tolerance:: regular diet Lochia:: Small Feeding Type:: bottle feeding Current Pain Level(1-10): 0 Physical Exam Patient ambulating, just getting out of shower when I rounded this AM. Constitutional WD/WN, vitals as above Respiratory normal respiratory effort and able to speak in complete sentences; no respiratory distress, no labored breathing and does not use accessory muscles Psychiatric A+Ox3, euthymic affect Results & Data Vital Signs (Past 12 Hours) Vital Signs Temp Pulse Resp BP Pulse Ox O2 Del Method 05/18/24 23:40 98.1 F 75 20 127/85 99 Room Air 05/18/24 20:25 98.2 F 86 20 111/76 98 Room Air
[2024-05-19] MEDS ORDERED: bisacodyL 10 MG SUPP PR PRN (20:32)
--- NOTE | 2024-05-20 07:28 | Obstetrical Progress Note ---
Date of Service May 20, 2024 Assessment & Plan (1) Encounter for care and examination after delivery: Satisfactory and postop course. Unsure when baby will be discharged but I will send prescription for her pain meds to her pharmacy today. [facility] need to go to [facility] if baby is not being discharged today. Subjective Ambulation: ambulating normally Voiding: no voiding problems Passing Gas:: Yes Diet Tolerance:: regular diet Lochia:: Small Feeding Type:: breast feeding having some issues otherwise doing well pain meds are affective Review of Systems All systems reviewed & are unremarkable except as noted in HPI & below Physical Exam Constitutional WD/WN, vitals as above Gastrointestinal (Abdomen) Inspection/Auscultation: + abdominal surgical incision (dry and intact- no cellulitis) Psychiatric A+Ox3, euthymic affect Genitourinary OB Exam Abdomen: + fundal height Fundus: + firm and + relation to umbilicus (2 below U) Results & Data Vital Signs (Past 12 Hours) Vital Signs Temp Pulse Resp BP Pulse Ox O2 Del Method 05/20/24 00:30 97.5 F L 88 18 124/82 98 Room Air 05/19/24 20:45 97.3 F L 93 H 18 121/76 96 Room Air
== END 2024-05-20 13:25 | disposition home or self-care (01) | DRG 786 ==
LOC: OPB 11:50 → 4S1 11:53 → 4E2 23:25